=== PATIENT | female | born 1980 | race Asian ===

== ENCOUNTER 2017-03-11 19:31 | Emergency (ER) | payer OTHER ==
[2017-03-11 19:48] VITALS: BP 96/75; PULSE 73; RESP 16; TEMP 98.1; O2SAT 96
--- NOTE | 2017-03-11 19:58 | UCPHY ---
H & P Patient Type: New HPI/ROS: CHIEF COMPLAINT: Dysuria. HISTORY OF PRESENT ILLNESS: The patient is a 36-year-old female who presents with dysuria for 3 days. She experiences the most pain at the end of urination. She noticed some blood upon wiping. She admits associated flank pain, urinary urgency, and chills. No fever, vomiting, diarrhea, appetite changes. She has never had a UTI. REVIEW OF SYSTEMS: Constitutional: No fever, no chills. Gastrointestinal: No nausea vomiting or diarrhea. No abdominal pain. Genitourinary: see above Musculoskeletal: see above Skin: No rashes. Past Medical/Surgical History: Denies. Social History: Nonsmoker. Smoking Status: Never smoked Physical Exam: General Appearance: Alert, no distress. Afebrile. Normal phonation. No respiratory distress. Speaks malay well. Abdomen: Soft and nontender, no masses, bowel sounds normal. Some CVAT as well as suprapubic tenderness. Skin: Warm and dry, no rashes. Musculoskeletal: No joint swelling. Back: CVA tenderness. Extremities: No edema. Homans sign negative. No cords. Constitutional: Initial Vital Signs Temperature (C) 36.7 C 03/11/17 19:45 Heart Rate 73 03/11/17 19:45 Respiratory Rate 16 03/11/17 19:45 Blood Pressure 96/75 L 03/11/17 19:45 O2 Sat (%) 96 03/11/17 19:45 Allergies/Adverse Reactions: No Known Allergies Allergy (Unverified 03/11/17 19:45) Home Medications: Medication Instructions Recorded Cephalexin [Keflex (*)] 500 mg PO Q6H #56 cap 03/11/17 Phenazopyridine HCl [Pyridium] 200 mg PO TID #6 tab 03/11/17 Medical Decision Making ED Course/Re-evaluation: 36-year-old female presents with dysuria for the past three days. She admits associated mild flank pain, chills, and urinary urgency. She has never had a UTI before. She denies associated symptoms. No fever, abdominal pain, vomiting, or diarrhea. Urinalysis ordered. Urine consistent with UTI: 10-15 WBCs, 1+ Leukocyte esterase, 2+ bacteria. I discussed this with her at this time. She will be placed on an antibiotic - we discussed Ciopro v Keflex, opted for the later . I have also written a prescription for Pyridium which she will take if she likes to. She understands to follow up with her PCP. She is comfortable with this plan. Differential Diagnosis: Differential diagnosis includes but is not limited to: Urinary tract infection, pyelonephritis, cystitis, ureterolithiasis, kidney stone, urinary retention. - Data Points Medications Given: Discontinued Medications Cephalexin (Keflex 500 Mg Prepack#4) 1 btl TAKEHOME EDNOW ONE PRN Reason: Protocol Stop: 03/11/17 21:46 Last Admin: 03/11/17 22:10 Dose: 1 btl Phenazopyridine HCl (Pyridium) 400 mg PO EDNOW ONE Stop: 03/11/17 21:48 Last Admin: 03/11/17 22:15 Dose: 400 mg Departure - Departure Disposition: Home, Routine, Self-Care Clinical Impression: UTI (urinary tract infection) Qualifiers: Urinary tract infection type: acute pyelonephritis Qualified Code(s): N10 - Acute pyelonephritis Condition: Good Instructions: Urinary Tract Infection in Women (ED) Additional Instructions: Take the antibiotic as prescribed. You can take the Pyridium as prescribed to help ease the pressure feeling. This will turn your urine orange. Drink plenty of fluids and be sure to get rest. Follow up with a primary care provider for reevaluation next week. If you need a primary care provider you have been given the telephone number of the on-call provider. Return for any serious worsening of condition. Referrals: Aisha Benson MD [Medical Doctor] - As per Instructions Prescriptions: Cephalexin [Keflex (*)] 500 mg PO Q6H #56 cap Phenazopyridine HCl [Pyridium] 200 mg PO TID #6 tab - PQRS PQRS Measurement: Does not apply. Report Scribed for: Rajat Guevara Report Scribed by: Tesfaye Castro Date of Report: 03/11/17 Time of Report: 20:50
[2017-03-11 20:07] LABS: COLOR YELLOW; LEUKOCYTE ESTERASE,URINE 1+ (NEGATIVE); NITRITE,URINE NEGATIVE (NEGATIVE)
[2017-03-11 20:56] LABS: BACTERIA 2+ /hpf (NONE SEEN)
[2017-03-11] MEDS ORDERED: PHENAZOPYRIDINE HCL 200 MG TAB PO ONE (21:47)
[2017-03-11] MEDS: CEPHALEXIN 500MG PREPACK#4 BTL TAKEHOME ONE ×2 (22:10→22:30)
== END 2017-03-11 22:23 | disposition home or self-care (01) ==
LOC: CED 19:31
DX: N39.0 Urinary tract infection, site not specified (principal)
CPT/HCPCS: 81003-PO; 81015-PO; G0463-PO